=== PATIENT | female | born 1985 ===

== ENCOUNTER 2021-06-27 14:20 | Emergency (ER) | payer SELFPAY ==
[2021-06-27 14:27] VITALS: BP 176/107
--- NOTE | 2021-06-27 15:48 | Emergency Department Report ---
<SYDNEE HERNANDEZ - Last Filed: 07/08/21 11:55> ED Female HPI - General Chief complaint: Abdominal Pain Stated complaint: ABD PAIN, EARLY PERIOD Source: patient Mode of arrival: Ambulatory Limitations: No Limitations - History of Present Illness Initial comments: The patient was evaluated in the emergency department for symptoms described in the history of present illness. He/she was evaluated in the context of the global COVID-19 pandemic, which necessitated consideration that the patient might be at risk for infection with the virus that causes COVID-19. Institutional protocols and algorithms that pertain to the evaluation of patients at risk for COVID-19 are in a state of rapid change based on information released by regulatory bodies including the CDC and federal and state organizations. These policies and algorithms were followed during the patient's care in the emergency department. Please note that these policies, procedures and recommendations changed on a rapid basis. 35-year-old -[place] female presents to the emergency room complaining of right lower quadrant abdominal pain and early menstrual cycle. Patient states her menstrual cycle was 15 days early. Patient does admit that she has been back working out. Patient denies any nausea vomiting. Patient denies any fever chills. Denies any vaginal discharge. No concerns for STD. MD Complaint: vaginal bleeding, pelvic pain -: This morning Location: RLQ Severity scale (0 -10): 4 Quality: cramping Consistency: intermittent Improves with: none Worsens with: none Are you Now?: No Last Menstrual Period: 06/13/21 EDC: 03/20/22 Associated Symptoms: abdominal pain. denies: vaginal discharge, loss of appetite, dysuria, hematuria, shortness of breath, weakness (Right lower quadrant) - Related Data Sexually active: Yes Allergies Allergy/AdvReac Type Severity Reaction Status Date / Time No Known Allergies Allergy Verified 06/27/21 14:27 ED Review of Systems Comment: All other systems reviewed and negative ED Physical Exam - General Limitations: No Limitations General appearance: alert, in no apparent distress - Head Head exam: Present: atraumatic, normocephalic - Eye Eye exam: Present: normal appearance - ENT ENT exam: Present: mucous membranes moist - Neck Neck exam: Present: normal inspection - Respiratory Respiratory exam: Present: normal lung sounds bilaterally. Absent: respiratory distress - Cardiovascular Cardiovascular Exam: Present: regular rate, normal rhythm. Absent: systolic murmur, diastolic murmur, rubs, gallop - GI/Abdominal GI/Abdominal exam: Present: soft, normal bowel sounds. Absent: distended, tenderness (Right groin area) - Extremities Exam Extremities exam: Present: normal inspection - Back Exam Back exam: Present: normal inspection, full ROM. Absent: CVA tenderness (R), vertebral tenderness - Neurological Exam Neurological exam: Present: alert, oriented X3, normal gait - Psychiatric Psychiatric exam: Present: normal affect, normal mood - Skin Skin exam: Present: warm, dry, intact, normal color. Absent: rash ED Medical Decision Making - Medical Decision Making 35-year-old -[place] female presents to the emergency room complaining of right lower quadrant abdominal pain and early menstrual cycle. Patient states her menstrual cycle was 15 days early. Patient does admit that she has been back working out. Patient denies any nausea vomiting. Patient denies any fever chills. Denies any vaginal discharge. No concerns for STD. Urinalysis urine been ordered ED Disposition Clinical Impression: Abnormal uterine bleeding (AUB) Disposition: HOME / SELF CARE / HOMELESS Is pt being admited?: No Does the pt Need Aspirin: No Condition: Stable Instructions: Abnormal Uterine Bleeding, [id number], Abdominal Pain (ED) Additional Instructions: Urine is positive for blood only. Negative test recommend to follow- up with a primary care provider return back to the emergency room with any worsening symptoms. Referrals: PRIMARY CARE, [Primary Care Provider] - 3-5 Days [facility] [Provider Group] - 3-5 Days Forms: Work/School Release Form(ED) <LEILA العلي - Last Filed: 07/08/21 21:23> ED Review of Systems ROS: Stated complaint: ABD PAIN, EARLY PERIOD Other details as noted in HPI ED Course Vital Signs 06/27/21 14:26 Temperature 98.5 F Pulse Rate 57 L Respiratory 16 Rate Blood Pressure 176/107 [Right] O2 Sat by Pulse 100 Oximetry ED Medical Decision Making - Lab Data Lab Results 06/27/21 Range/Units Unknown Urine Color Yellow (Yellow) Urine Turbidity Clear (Clear) Urine pH 5.0 (5.0-7.0) Ur Specific Page 1.019 (1.003-1.030) Urine Protein <15 mg/dl (Negative) mg/dL Urine Glucose (UA) Neg (Negative) mg/dL Urine Ketones Neg (Negative) mg/dL Urine Blood Mod (Negative) Urine Nitrite Neg (Negative) Urine Bilirubin Neg (Negative) Urine Urobilinogen < 2.0 (<2.0) mg/dL Ur Leukocyte Esterase Neg (Negative) Urine WBC (Auto) 1.0 (0.0-6.0) /HPF Urine RBC (Auto) 8.0 (0.0-6.0) /HPF U Epithel Cells (Auto) 1.0 (0-13.0) /HPF Urine Mucus 1+ /HPF Urine HCG, Qual Negative (Negative) Critical care attestation.: If time is entered above; I have spent that time in minutes in the direct care of this critically ill patient, excluding procedure time. ED Disposition Is pt being admited?: No
[2021-06-27 16:14] LABS: Bilirubin,Urine NEG (Negative); Blood,Urine MOD (Negative); Color,Urine Yellow (Yellow); Mucus,Urine 1+ /HPF; Protein,Urine <15 mg/dL mg/dL (Negative); Urobilinogen,Urine < 2.0 mg/dL (<2.0)
[2021-06-27 16:30] LABS: HCG Qualitative,Urine Negative (Negative)
== END 2021-06-27 16:58 | disposition home or self-care (01) ==
LOC: ED 14:20
DX: N93.9 Abnormal uterine and vaginal bleeding, unspecified (principal); Z79.899 Other long term (current) drug therapy
CPT/HCPCS: 81001; 81025; 99283

== ENCOUNTER 2021-09-16 17:10 | Emergency (ER) | payer SELFPAY ==
[2021-09-16 17:14] VITALS: BP 108/59
== END 2021-09-16 23:30 | disposition left against medical advice (07) ==
LOC: ED 17:10
DX: R10.9 Unspecified abdominal pain (principal); Z53.21 Procedure and treatment not carried out due to patient leaving prior to being seen by health care provider